=== PATIENT | female | born 1975 | race Caucasian/White ===

== ENCOUNTER 2017-10-03 01:01 | Observation (INO) | payer OTHER ==
[2017-10-03] VITALS (12 sets, daily range): BP systolic 107–158; BP diastolic 69–102
[~2017-10-03] VITALS: Ht 168.9 cm; Wt 120.7 kg
[~2017-10-03 01:01] MED LIST: ALBU8.5H IH; CETI-169 PO; CHLO10TA PO; CLON-308 PO; DIAZ-308 PO; DICL100G39; FLUT16SP19 NS; HYDR12.561 PO; LEVO25TA61 PO; LIDO5CRE18; MAGN500C11; MULT-1335 PO; SERT-181 PO
[2017-10-03 05:59] LABS: PLATELET COUNT, AUTOMATED 331 K/uL (150-450)
[2017-10-03] MEDS ORDERED: PHENAZOPYRIDINE 200 MG TAB PO ONE (06:30)
[2017-10-03] MEDS ORDERED: LIDOCAINE/SOD BICARB 8.4% SYR ID ONE (06:30)
[2017-10-03] MEDS ORDERED: cefOXitin/DEX(*) 2GM/50ML PREM 50 ML IVPB ONE (06:30)
[2017-10-03] MEDS ORDERED: MIDAZOLAM 2 MG/2 ML VIAL IVP PRN (06:30)
[2017-10-03] MEDS ORDERED: NORMOSOL R SOLN(*) 1000 ML BAG 1,000 ML IV PRN (06:30)
[2017-10-03] MEDS ORDERED: FAMOTIDINE 20 MG TAB PO ONE (06:30)
[2017-10-03] MEDS ORDERED: METOCLOPRAMIDE 10 MG/2 ML SDV ONE (06:53)
[2017-10-03] MEDS ORDERED: ROCURONIUM BROM 10 MG/ML 10 ML ONE (06:53)
[2017-10-03] MEDS ORDERED: LIDOCAINE MPF 1% 5 ML VIAL ONE (06:53)
[2017-10-03] MEDS ORDERED: DEXAMETHASONE SOD 4 MG/ML VIAL ONE (06:53)
[2017-10-03] MEDS ORDERED: PROPOFOL EMUL(*) 10MG/ML 20 ML 40 ML ONE (06:53)
[2017-10-03] MEDS ORDERED: ONDANSETRON 4 MG/2 ML VIAL ONE (06:53)
[2017-10-03] MEDS ORDERED: fentaNYL CITR 250 MCG/5 ML AMP ONE (06:56)
[2017-10-03] MEDS ORDERED: VASOPRESSIN 20 UNIT/ML VIAL ONE (06:59)
[2017-10-03] MEDS ORDERED: NS(*) 0.9% 100 ML BAG 100 ML ONE (06:59)
[2017-10-03] MEDS ORDERED: ROPIVACAINE 0.2% 20 ML VIAL ONE (06:59)
[2017-10-03] MEDS ORDERED: PROPOFOL(*)1000 MG/100 ML VIAL 0 ML ONE (07:05)
[2017-10-03] MEDS ORDERED: ACETAMINOPHEN(*)1000 MG/100 ML 100 ML IVPB ONE (07:05)
[2017-10-03] MEDS ORDERED: SUGAMMADEX SOD 500 MG/5 ML SDV ONE (09:35)
[2017-10-03] MEDS ORDERED: KETOROLAC 30 MG/ML VIAL ONE (09:36)
--- NOTE | 2017-10-03 10:00 | Post Operative Note ---
Operative Note - [facility] Operative Day Date: Oct 03, 2017 Time: 09:59 Physicians Surgeon: Saqib Slide Developer: Rocio Anesthesia: GETA Diagnosis Pre-Op Diagnosis: Dysmenorrhea Menorrhagia uterine fibroid Post-Op Diagnosis: same Endometriosis Left Hydrosalpinx Procedure Findings: endometriosi, left hydrosalpinx Procedure(s): LAVH BS MMC Cysto Specimen Removed:(Maybe N/A): uterus tubes Complications: none #[id number] Fluids Fluids: 1900 ml Estimated Blood Loss: <100 ml Dictated Date OP Note Dictated: Oct 03, 2017 Time OP Note Dictated: 10:00 Copies to: CHEMA TOVAR MD, TRAVIS MD Oct 03, 2017 10:00
[2017-10-03] MEDS ORDERED: clonazePAM 1 MG TAB PO PRN (10:05)
[2017-10-03] MEDS ORDERED: DIAZEPAM 5 MG TAB PO PRN (10:05)
[2017-10-03] MEDS ORDERED: ACETAMINOPHEN 325 MG TAB PO PRN (10:05)
[2017-10-03] MEDS ORDERED: SIMETHICONE 80 MG CHEW CHEW PRN (10:05)
[2017-10-03] MEDS ORDERED: ZOLPIDEM TARTRATE 10 MG TAB PO PRN (10:05)
[2017-10-03] MEDS ORDERED: fentaNYL CITR 100 MCG/2 ML AMP ONE ×2 (10:17→10:37)
[2017-10-03] MEDS ORDERED: BELLADONNA ALK/OPIUM 60MG SUPP PR ONE (10:50)
[2017-10-03] MEDS ORDERED: BELLADONNA ALK/OPIUM 60MG SUPP PR PRN (11:25)
[2017-10-03] MEDS: DLR(*) 1000 ML BAG 1,000 ML IV PRN ×2 (11:52→20:25)
[2017-10-03] MEDS ORDERED: HYDROmorphone PCA 6 MG/30 ML IV PRN (13:25)
[2017-10-03] MEDS ORDERED: NALOXONE HCL 0.4 MG/ML VIAL IVP PRN (13:35)
[2017-10-03] MEDS: ALBUTEROL SULFATE 90 MCG/ACT 8.5 GM HNH INH PRN (16:15)
[2017-10-03] MEDS: KETOROLAC 30 MG/ML VIAL IVP SCH ×2 (16:24→21:25)
--- NOTE | 2017-10-03 17:01 | OPERATIVE REPORT 1 ---
EVENT DATE: October 03, 2017 SURGEON: Rashaun Cerrato MD ANESTHESIOLOGIST: Raghu Moran MD ANESTHESIA: General endotracheal. NUTRITION REPRESENTATIVE: Raghu Chan MD PREOPERATIVE DIAGNOSES 1. Secondary dysmenorrhea. 2. Menorrhagia. 3. Submucous leiomyoma. POSTOPERATIVE DIAGNOSES 1. Secondary dysmenorrhea. 2. Menorrhagia. 3. Submucous leiomyoma. 4. Endometriosis. PROCEDURES PERFORMED 1. Laparoscopic-assisted vaginal hysterectomy. 2. Bilateral salpingectomy. 3. Modified Baldwin culdoplasty. 4. Diagnostic cystoscopy. ESTIMATED BLOOD LOSS Less than 100 mL. FLUIDS Crystalloid 1900 mL IV. URINE OUTPUT Not measured. FINDINGS Upon inspecting the pelvis, the uterus was enlarged with an apparent large uterine fibroid on the posterior uterine wall, slightly deviated towards the right side. The ovaries appeared normal. The left adnexa was slightly enveloped in filmy adhesions. The left fallopian tube appeared to be dilated consistent with a hydrosalpinx. Both ureters were observed peristalsing and excellent urine jets at the completion of the procedure as observed through the cystoscopy. PROCEDURE IN DETAIL The patient was brought to the operating room with a working IV and placed in the dorsal supine position. She was placed under general endotracheal anesthesia and moved to the dorsal lithotomy position. She was then prepped and draped in the usual sterile fashion. A weighted speculum was placed in the vagina. The cervix was grasped with a single-toothed tenaculum. It was carefully sounded to a depth of a 11 cm. A size 10 DEMIAN uterine manipulator was selected and assembled. The cervix was dilated to accommodate. It was passed through the cervix into the uterus. The bulb was inflated and secured, and all other instruments were then removed. A Smart catheter was placed. The legs were brought to the supine position, and gloves were changed. The umbilicus was infiltrated with 0.2% Naropin, and a 5 mm stab incision was made. A Veress needle was passed through this incision into the abdomen. While stabilizing the anterior abdominal wall, a pneumoperitoneum was created to an intra-abdominal pressure of 20 mmHg. This was reduced to 15 mmHg once all ports had been placed. The Veress needle was removed. A 5 mm bladeless trocar was passed through this incision into the abdomen under direct visualization with the scope. The patient was moved to the Trendelenburg position. Two additional 5 mm ports were placed in the right and left lower quadrants under direct visualization with the scope and under similar technique. The abdomen and pelvis were surveyed with the above findings noted. The left fallopian tube was put on medial stretch. It was excised carefully with the Gyrus device along its medial salpinx connection up to the utero-ovarian ligament. This was then cauterized with the round ligament and transected using the Gyrus device. The broad ligament was then into anterior and posterior leaflets. The anterior leaflet followed along the anterior uterus, creating the bladder reflection, and the posterior leaflet down to the uterosacral ligament, skeletonizing the uterine vasculature. This was then cauterized. The same procedure was followed on the contralateral side. On this side, there were more space-occupying issues with this large fibroid. This was overcome by medial retraction of the uterus. The same procedure excised the fallopian tube up to the utero-ovarian ligament. The utero-ovarian ligament was cauterized and transected. The round ligament was cauterized and transected. The broad ligament was into anterior and posterior leaflets. The bladder reflection was completed anteriorly, and the posterior peritoneum was dissected down to the uterosacral ligament, exposing the vasculature which was cauterized. Upon completion, the uterus was blanching. It was irrigated. There was no visible excessive bleeding at this point. The pneumoperitoneum was , therefore, released, and all instruments were secured to the patient's abdomen and covered. The legs were brought back to the lithotomy position, and we proceeded again with the vaginal portion of the procedure. A weighted speculum was placed in the vagina. The cervix was grasped with Donis clamps and put on stretch. The cervix was circumferentially injected with a diluted Pitressin solution, and a circumferential incision was made with the Bovie. The posterior cul-de-sac was entered sharply with Manuel scissors, and a long- billed weighted speculum was inserted here, exposing the uterosacral ligaments. These were bilaterally clamped, cut, and suture ligated with Vicryl suture type. Anterior dissection was performed by onion skinning the vaginal mucosa away from the cervix, dissecting up to the laparoscopic dissection. A right- angle retractor was inserted here into the anterior cul-de-sac, and the bladder was retracted away. This exposed the cardinal ligaments which were bilaterally clamped, cut, and suture ligated with Vicryl suture. The remaining vascular pedicle was isolated, then clamped and cut, excising the uterus. It was pulled out through the vagina and sent to Pathology. The remaining pedicles were sutured ligated with Vicryl suture and were hemostatic upon completion. The parietal peritoneum was closed with a 2-0 Vicryl in a running pursestring stitch. A modified Baldwin culdoplasty was performed by securing the uterosacral ligament to the ipsilateral vaginal mucosa and obliterating the posterior cul-de-sac peritoneum with external Baldwin stitches. Upon completion , there was only minor bleeding from the cuff. The vaginal cuff was repaired with 2-0 Vicryl in a running locking stitch. The uterosacral ligaments were tied in the midline. The Smart catheter was then removed. The external Baldwin sutures were tied. Diagnostic cystoscopy was performed. The bladder mucosa appeared to have Hunner lesions consistent with interstitial cystitis, but otherwise no visible injuries. The ureters bilaterally appeared to efflux urine jets with excellent stream, confirming patency and no visible injuries. The bladder was again drained. All instruments were removed from the vagina. The legs were brought back to the supine position, and the gloves were changed. We went back up top, reinsufflated the abdomen, and inspected laparoscopically. All pedicles were hemostatic. There was excellent support of the apex of the vagina, and no visible complications. The pelvis was irrigated with saline and suctioned dry. The pneumoperitoneum was released. All instruments were then removed. The skin incisions were repaired with 4-0 Monocryl simple subdermal and covered with Dermabond skin adhesive. She tolerated the procedure well. Sponge, lap, needle, and instrument counts were all correct times three. She was taken to recovery in stable condition. KAYDEN
--- NOTE | 2017-10-03 17:11 | OB/GYN Progress Note ---
OB Subjective Progress Notes Subjective Pain control issues initially but got behind in pain and anxiety was setting in. 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 Has been up to void multiple times. Nausea much better now. 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 Will wean to oral pills tomorrow. (2) Fibroid tumor (3) Dysmenorrhea CHEMA TOVAR MD Oct 03, 2017 17:11
[2017-10-03] MEDS: DOCUSATE CALCIUM 240 MG CAP PO SCH (21:24)
[2017-10-03] MEDS: FAMOTIDINE 20 MG TAB PO SCH (21:24)
[2017-10-03] MEDS: acetaZOLAMIDE 250 MG TAB PO SCH (21:25)
[2017-10-04 02:30] VITALS: BP 132/81
[2017-10-04] MEDS: KETOROLAC 30 MG/ML VIAL IVP SCH (04:00)
[2017-10-04] MEDS: DLR(*) 1000 ML BAG 1,000 ML IV PRN (05:10)
[2017-10-04 06:00] LABS: PLATELET COUNT, AUTOMATED 292 K/uL (150-450)
[2017-10-04 07:35] VITALS: BP 125/94
--- NOTE | 2017-10-04 07:43 | OB/GYN Progress Note ---
OB Subjective Progress Notes Subjective Some nausea yesterday and emesis with PO intake attempts. Better now and tolerating PO fluids. Ambulating to BR and voiding well. GI: POS Vomiting (yesterday), NEG Nausea (over last 12 hours) Pain: Mild OB Objective Physical Exam Vital Signs Date Time Temp Pulse Resp B/P (MAP) Pulse Ox O2 Delivery O2 Flow Rate FiO2 10/04/17 05:15 76 16 93 Nasal Cannula 2.0 10/04/17 02:30 98.7 132/81 (98) General Appearance: Alert/Awake/No Acute Distress Neurological: No Gross deficits Cardiovascular: Normal Rhythm & Peripheral Pulses, Regular Rate and Rhythm Respiratory: No Respiratory Distress, Clear to Auscultation Abdomen: Soft, Non-Tender, Non-Distended, Bowel Sounds Present (hypoactive) Incision: Other (pt has abdominal binder on) Integumentary: Skin Intact without Lesions or Rash Psychological: Alert & Oriented X3, Appropriate Mood & Affect Result Diagram: 10/04/17 0541 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 If continues well, may go home tonight. (2) Fibroid tumor (3) Dysmenorrhea CHEMA TOVAR MD Oct 04, 2017 07:43
[2017-10-04] MEDS: ALBUTEROL SULFATE 90 MCG/ACT 8.5 GM HNH INH PRN ×2 (08:35→12:52)
[2017-10-04 08:48] VITALS: Ht 168.9 cm; Wt 120.7 kg
[2017-10-04] MEDS ORDERED: busPIRone HCL 5 MG TAB PO SCH (09:00)
[2017-10-04] MEDS ORDERED: MULTIVITAMINS TAB PO SCH (09:00)
[2017-10-04] MEDS ORDERED: MAGNESIUM CITRATE 300 ML BTL PO ONE (09:00)
[2017-10-04] MEDS ORDERED: INFLUENZA VIRUS VAC 0.5 ML SYR IM ONLY ONE (09:00)
[2017-10-04] MEDS: acetaZOLAMIDE 250 MG TAB PO SCH (09:16)
[2017-10-04] MEDS: FAMOTIDINE 20 MG TAB PO SCH (09:18)
[2017-10-04] MEDS: DOCUSATE CALCIUM 240 MG CAP PO SCH (09:18)
[2017-10-04] MEDS ORDERED: IBUPROFEN 800 MG TAB PO PRN (10:00)
[2017-10-04] MEDS ORDERED: MAGNESIUM HYDROXIDE* 30ML UDCP PO PRN (10:20)
== END 2017-10-04 16:00 | disposition home or self-care (01) ==
LOC: OR 01:01 → PED 11:15
PROVIDERS: ADMIT Obstetrics & Gynecology; ATTEND Obstetrics & Gynecology
DX: N94.5 Secondary dysmenorrhea (principal); N92.0 Excessive and frequent menstruation with regular cycle; D25.0 Submucous leiomyoma of uterus; N80.9 Endometriosis, unspecified
CPT/HCPCS: 36415; 58552; 84703; 85014; 85018; 85025; 88307; 94640; G0378; J0131; J0694; J1100; J1170; J1885; J2001; J2250; J2704; J2765; J2795; J3010; J3490; J7050; Q0161; J2405

== ENCOUNTER 2018-12-02 22:46 | Emergency (ER) | payer OTHER ==
[2017-10-04 08:48] VITALS: Wt 108.0 kg
[~2018-12-02 22:46] MED LIST changes: -CLON-308 PO; +CLON-335 PO
--- NOTE | 2018-12-02 22:55 | ER Report ---
History and Physical Time Seen By MD: 22:54 HPI/ROS CHIEF COMPLAINT: Migraine headache HISTORY OF PRESENT ILLNESS: 43-year-old female presents with a migraine headache for 48 hours. Patient describes classic headache. She used her to sumatriptan autoinjectors without improvement of her headache. She's been vomiting tonight which prompted her to come in for evaluation. Patient notes no fever, chills or rhinitis. She states she got over an upper respiratory infection one week ago. Patient notes photophobia, nausea and vomiting. She notes no stiff neck. She denies any numbness, tingling or weakness in any of her extremities except for some numbness in her hands which occurs with all of her migraines.. REVIEW OF SYSTEMS: Respiratory: No cough, no dyspnea. Cardiovascular: No chest pain, no palpitations. Gastrointestinal: As above Musculoskeletal: No back pain. Allergies: Coded Allergies: sumatriptan (Verified Allergy, Severe, 08/16/17) Penicillins (Verified Allergy, Unknown, 08/16/17) pseudoephedrine (Verified Adverse Reaction, Severe, 08/16/17) promethazine (Verified Adverse Reaction, Intermediate, MOOD CHANGES, 09/26/17) ondansetron (Verified Adverse Reaction, Unknown, 08/16/17) Home Meds Active Scripts Hydroxyzine Pamoate (VISTARIL) 25 Mg Capsule, 25 MG PO Q6HR PRN for NAUSEA/VOMITING, #30 CAPSULE Prov:NOHEMI HOPE DO 12/03/18 Reported Medications Quetiapine Fumarate (Quetiapine Fumarate ER) 300 Mg Tab.er.24h, 1 TAB PO QDAY 12/02/18 Sumatriptan Succinate (SUMATRIPTAN SUCCINATE) 4 Mg/0.5 Ml Pen.injctr, 4 MG SQ PRN PRN for MIGRAINE 12/02/18 Diazepam (DIAZEPAM) 5 Mg Tablet, 5 MG PO QHS PRN for ANXIETY, #5 TAB 09/26/17 Multivitamin With Minerals (MULTIPLE VITAMIN) 1 Each Tablet, 1 EACH PO DAILY, TAB 09/26/17 Albuterol Sulfate 90 Mcg/Act (PROAIR HFA 90 MCG/ACT) 8.5 Gm Hfa.aer.ad, 1-2 PUFF IH 3-4XD, INHALER 08/16/17 Fluticasone Prop 50 Mcg Ns (FLONASE 50 MCG NS) 16 Gm [place].susp, 1 SPRAY NS BID, BOT 08/16/17 Chlorpromazine Hcl (CHLORPROMAZINE HCL) 10 Mg Tablet, 10 MG PO 08/16/17 Lidocaine (Lidocaine) 5 Gm Cream..g. 08/16/17 Diclofenac Sodium 1% Gel (VOLTAREN 1% GEL) 100 Gm Gel..gram. 08/16/17 Cetirizine Hcl (CETIRIZINE HCL) 10 Mg Tablet, 10 MG PO QDAY, TAB 08/16/17 Magnesium Oxide (Magnesium Oxide) 500 Mg Capsule, 800 QDAY 08/16/17 Clonazepam (CLONAZEPAM) 2 Mg Tablet, 1 MG PO QDAY, #6 TAB 08/16/17 Discontinued Reported Medications Sertraline Hcl (SERTRALINE HCL) 100 Mg Tablet, 1 TAB PO QDAY, TAB 08/16/17 Levothyroxine Sodium (LEVOTHYROXINE SODIUM) 25 Mcg Tablet, 25 MCG PO QDAY 08/16/17 Hydrochlorothiazide (HYDROCHLOROTHIAZIDE) 12.5 Mg Tablet, 1 TAB PO QDAY, TAB 08/16/17 Reviewed Nurses Notes: Yes Old Medical Records Reviewed: Yes Hx Smoking: No Smoking Status: Never Smoker Exposure to Second Hand Smoke?: No Hx Substance Use Disorder: No Hx Alcohol Use: Yes (1-2 drinks per week) Constitutional Vital Sign - Last 24 Hours 12/02/18 12/02/18 12/02/18 12/02/18 22:46 22:52 22:54 23:00 Temp 98.1 Pulse ??? 96 Resp 20 B/P (MAP) 141/111 (121) 141/111 125/106 (112) Pulse Ox 97 O2 Delivery Room Air 12/02/18 12/02/18 12/02/18 12/02/18 23:16 23:30 23:46 23:51 Pulse 91 90 95 B/P (MAP) 126/100 (109) Pulse Ox 94 94 94 12/03/18 12/03/18 12/03/18 00:06 00:21 00:36 Pulse 89 89 91 Pulse Ox 93 92 94 Intake and Output 12/02/18 12/02/18 12/03/18 15:00 23:00 07:00 Intake Total 200 ml Balance 200 ml Physical Exam General Appearance: The patient is alert, has no immediate need for airway protection and no current signs of toxicity. Moderate distress, wearing sunglasses HEENT: Pupils equal and round no injection. + Photophobia, TMs normal, orop harynx without redness or exudate Respiratory: Chest is non tender, lungs are clear to auscultation. Cardiac: regular rate and rhythm Gastrointestinal: Abdomen is soft and non tender, no masses, bowel sounds normal. Musculoskeletal: Neck: Neck is supple and non tender. No lymphadenopathy, no meningismus Extremities have full range of motion and are non tender. Skin: No rashes or lesions. Neuro: Alert and oriented 3, cranial nerves II through XII intact motor 5/5 crosscutter, sensory intact to light touch 4 DIFFERENTIAL DIAGNOSIS: After history and physical exam differential diagnosis was considered for headache including but not limited to subarachnoid hemorrhage, migraine headache, tension headache and infectious causes such as meningitis, pharyngitis and sinusitis. Medical Decision Making ED Course/Re-evaluation Clinical Indication for ER IV: Hydration, IV Access ED Course Patient was minute to an examination room. H&P was done. The differential diagnoses was considered. On clinical examination. Patient has a nonfocal neurologic examination. Patient be treated with a nonnarcotic cocktail of IV medications. She has numerous allergies, which comp acute treatment. She was given normal saline 1 L, Benadryl 25 mg, Toradol 30 mg, Decadron 5 mg, Reglan 10 mg. Patient's IV infiltrated before she got all the fluids. Patient reports feeling better in terms of nausea. She was given 1 Percocet by mouth for pain relief. She is discharged home with prescription of hydroxyzine for nausea control. She is advised to follow-up with her primary care if her headache recurs. Decision to Disposition Date: Dec 02, 2018 Decision to Disposition Time: 23:44 Depart Departure Latest Vital Signs Vital Signs Date Time Temp Pulse Resp B/P (MAP) Pulse Ox O2 Delivery O2 Flow Rate FiO2 12/03/18 00:36 91 94 12/02/18 23:30 126/100 (109) 12/02/18 22:54 98.1 20 Room Air Impression: Primary Impression: Migraine headache Condition: Improved Disposition: HOME OR SELF-CARE New Scripts Hydroxyzine Pamoate (VISTARIL) 25 Mg Capsule 25 MG PO Q6HR PRN for NAUSEA/VOMITING, #30 CAPSULE Prov: NOHEMI HOPE DO 12/03/18 Patient Instructions: Migraine Headache (ED) Additional Instructions: Follow-up with your primary care doctor as needed Problem Qualifiers Primary Impression: Migraine headache Migraine type: unspecified Status migrainosus presence: without status migrainosus Intractability: not intractable Qualified Codes: G43.909 - Migraine, unspecified, not intractable, without status migrainosus NOHEMI HOPE DO Dec 02, 2018 22:55
[2018-12-02] MEDS ORDERED: SUMA4PEN SQ (23:01)
[2018-12-02] MEDS ORDERED: QUET300T70 PO (23:03)
[2018-12-02] MEDS ORDERED: diphenhydrAMINE 50 MG/ML VIAL IVP ONE (23:20)
[2018-12-02] MEDS ORDERED: METOCLOPRAMIDE 10 MG/2 ML SDV IVP ONE (23:20)
[2018-12-02] MEDS ORDERED: DEXAMETHASONE SOD PHOS 10MG/ML IVP ONE (23:20)
[2018-12-02] MEDS ORDERED: KETOROLAC 30 MG/ML VIAL IVP ONE (23:20)
[2018-12-02] MEDS ORDERED: NS(*) 0.9% 1000 ML BAG 1,000 ML IV ONE (23:20)
[2018-12-02 23:30] VITALS: BP 126/100
[2018-12-03] MEDS ORDERED: HYDR25CA83 PO (00:46)
== END 2018-12-03 00:57 | disposition home or self-care (01) ==
LOC: ER 22:59
DX: G43.909 Migraine, unspecified, not intractable, without status migrainosus (principal)
CPT/HCPCS: 96374; 96375; 99284; J1100; J1200; J1885; J2765; J7030

== ENCOUNTER 2019-03-05 01:54 | Observation (INO) | payer OTHER ==
[2019-03-05] VITALS (12 sets, daily range): BP systolic 115–151; BP diastolic 54–104
[~2019-03-05] VITALS: Ht 167.6 cm; Wt 127.5 kg
[~2019-03-05 01:54] MED LIST changes: +HYDR25CA83 PO; -LIDO5CRE18; +LIDO5CRE18 TOP; +MELA3TAB31 PO; +QUET100T PO; +QUET300T70 PO; +SUMA4PEN SQ
[2019-03-05] MEDS ORDERED: LIDOCAINE/SOD BICARB 8.4% SYR ID ONE (07:35)
[2019-03-05] MEDS ORDERED: NORMOSOL R SOLN(*) 1000 ML BAG 1,000 ML IV PRN (07:35)
[2019-03-05] MEDS ORDERED: MIDAZOLAM 2 MG/2 ML VIAL IVP PRN (07:35)
[2019-03-05] MEDS ORDERED: FAMOTIDINE 20 MG TAB PO ONE (07:35)
[2019-03-05 07:45] LABS: PLATELET COUNT, AUTOMATED 296 K/uL (150-450)
[2019-03-05] MEDS ORDERED: fentaNYL CITR 100 MCG/2 ML AMP ONE ×3 (08:24→11:32)
[2019-03-05] MEDS ORDERED: PROPOFOL EMUL(*) 10MG/ML 20 ML 20 ML ONE (08:24)
[2019-03-05] MEDS ORDERED: DEXAMETHASONE SOD PHOS 10MG/ML ONE (08:24)
[2019-03-05] MEDS ORDERED: LIDOCAINE MPF 1% 5 ML VIAL ONE (08:24)
[2019-03-05] MEDS ORDERED: ONDANSETRON 4 MG/2 ML VIAL ONE (08:24)
[2019-03-05] MEDS ORDERED: VASOPRESSIN 20 UNIT/ML VIAL ONE (08:28)
[2019-03-05] MEDS ORDERED: ESTROGENS CONJ VAG CREAM 30 GM TUBE PV ONE (08:28)
[2019-03-05] MEDS ORDERED: ROPIVACAINE 0.2% 20 ML VIAL ONE (08:28)
[2019-03-05] MEDS ORDERED: NS(*) 0.9% 100 ML BAG 100 ML ONE (08:28)
[2019-03-05] MEDS ORDERED: ROCURONIUM BR 10 MG/ML 5 ML SY 5 ML ONE ×2 (08:40→10:47)
[2019-03-05] MEDS ORDERED: MANNITOL* (20%)100 GM/500ML BG 500 ML IVPB ONE (08:48)
[2019-03-05] MEDS ORDERED: NS(*) 0.9% 250 ML BAG 0 ML ONE (08:49)
[2019-03-05] MEDS ORDERED: SUGAMMADEX SOD 500 MG/5 ML SDV ONE (10:52)
--- NOTE | 2019-03-05 11:24 | Post Operative Note ---
Operative Note - [facility] Operative Day Date: Mar 05, 2019 Time: 11:22 Physicians Surgeon: Saqib Anesthesia: SHANTELLE Diagnosis Pre-Op Diagnosis: cystocele Recotocele urethral hypermobility mixed urinary incontinence Post-Op Diagnosis: same Procedure Procedure(s): anterior colporrhaphy posterior colporrhaphy TO midurethropexy Complications: [id number] Fluids Fluids: 1200 ml Estimated Blood Loss: minimal Dictated Date OP Note Dictated: Mar 05, 2019 Time OP Note Dictated: 11:23 Copies to: CHEMA TOVAR MD ; CHEMA TOVAR MD Mar 05, 2019 11:24
[2019-03-05] MEDS ORDERED: SIMETHICONE 80 MG CHEW CHEW PRN (11:25)
[2019-03-05] MEDS ORDERED: INFLUENZA VIRUS VAC 0.5ML SYR IM ONE (11:25)
[2019-03-05] MEDS ORDERED: ZOLPIDEM TARTRATE 10 MG TAB PO PRN (11:25)
[2019-03-05] MEDS ORDERED: ACETAMINOPHEN 325 MG TAB PO PRN (11:25)
[2019-03-05] MEDS ORDERED: KETOROLAC 30 MG/ML VIAL IVP SCH (12:00)
--- NOTE | 2019-03-05 12:45 | OPERATIVE REPORT 1 ---
EVENT DATE: March 05, 2019 SURGEON: Rashaun Cerrato MD ANESTHESIOLOGIST: Fernando Cuevas MD ANESTHESIA: General LMA. PREOPERATIVE DIAGNOSES 1. 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 2. Urinary incontinence, mixed. 3. Rectocele. 4. Cystocele, midline. POSTOPERATIVE DIAGNOSES 1. 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 2. Urinary incontinence, mixed. 3. Rectocele. 4. Cystocele, midline. PROCEDURES PERFORMED 1. Anterior colporrhaphy. 2. Posterior colporrhaphy. 3. Transobturator mid urethropexy. 4. Diagnostic cystoscopy. ESTIMATED BLOOD LOSS Minimal. FLUIDS 1200 cc IV crystalloid. DESCRIPTION OF PROCEDURE The patient was brought to the operating room with a working IV placed in the dorsal supine position. She was placed under general LMA anesthesia by Dr. Cuevas and moved to the dorsal lithotomy position. She was then prepped and draped in the usual sterile fashion. A weighted speculum was placed in the vagina and the anterior defect was inspected. It was a midline defect. Therefore, the vaginal cuff was grasped between two Allis clamps and put on lateral stretch. The defect was demarcated with a marker and the mid urethral region was identified. An inverted T-shape incision was made along the defect and up to transversely across the vaginal cuff. The vagina mucosa was then dissected away underlying endopelvic fascia. This was performed on both sides and using blunt and sharp dissection the defect was dissected out. It was reduced first by pursestring stitch followed by Jayda plication stitches along its entire length up to the mid urethra. Excess vaginal mucosa was then trimmed away and the vaginal incision was repaired with a 2-0 Vicryl in a running locking stitch. Attention was then turned to the posterior repair in likewise fashion, inspecting and demarcating the defect, which was midline. A kennedy-shaped perineorrhaphy incision was made, dissecting out that kennedy-shaped portion of the vaginal introitus and perineal skin. The defect was otherwise received in incision in the midline along its length up to the vaginal cuff. It was dissected laterally with sharp and blunt dissection in order to isolate the defect and then a pursestring stitch was performed to reduce the size followed by Jayda plication stitches along its entire length. The defect was nicely reduced after that had been performed. Excess vaginal mucosa was trimmed away and the repair was performed with a 2-0 Vicryl in a running locking stitch and the perineum was repaired as typical for a second degree obstetrical tear. A few site specific bleeders were suture ligated with [id number] stitch of 2-0 Vicryl and then excellent hemostasis was achieved. Attention was then turned to the sling. The mid urethra received a linear transverse incision after infiltrating with local anesthetic. Dissection towards the transobturator space was performed with tenotomy scissors angled at a 45-degree angle and bluntly dissecting towards the transobturator space, which was palpable extracorporeally. A puncture incision was made overlying the transobturator fossa on both sides. The dissection was performed on both sides and then bluntly continued until the posterior ovarian fossa membrane was palpable. The hook was placed through the right transobturator fossa through the membrane, rotating the hook to a 45-degree angle and continuing through the dissection into the vaginal space. The sling was attached and drawn back through, leaving the blue introducers intracorporal. The same procedure was followed on the contralateral side in likewise fashion, placing the string through the transobturator membrane and then rotating to a 45-degree angle and continuing into the vaginal dissection. The sling was attached and drawn back through, leaving the blue introducers intracorporal. Diagnostic cystoscopy was then performed, removing the Smart catheter and inspecting the entire bladder. There were no visible bladder injuries notable. Both ureters were observed to have strong urine jets. Therefore, cystoscopy was completed and the scope was removed. Smart catheter was replaced and the sling was tensioned by grasping the mid portion of the sling with a [place] clamp, approximately 1 cm worth of folded sling material, and then approximating the Annabel against the urethra. The slack was taken out of the remaining sling. The sleeves were removed, securing the sling in place and the Annabel was removed. Minor adjustments were then made in order to ensure a curved Manuel scissor could easily pass beneath the sling but was still on enough tension to occlude the urethra with a Valsalva. Excess sling material was trimmed at the perineum. The incision was repaired with a 2-0 Vicryl in a running locking stitch. The vagina remained hemostatic throughout the sling procedure. Therefore, the vagina was packed with a Kerlix sponge moistened with Premarin cream. Smart catheter was left indwelling. She was then awakened from general anesthesia in stable condition and taken to recovery. Sponge, lap, needle and instrument counts were all correct x3. MTDD
[2019-03-05] MEDS: DLR(*) 1000 ML BAG 1,000 ML IV PRN ×2 (13:00→18:35)
[2019-03-05] MEDS: BELLADONNA ALK/OPIUM 60MG SUPP PR PRN (13:19)
[2019-03-05] MEDS: oxyCODON/ACET (*)5/325MG (CII) 1 TAB TAB PO PRN ×2 (13:51→22:37)
[2019-03-05] MEDS: DOCUSATE CALCIUM 240 MG CAP PO SCH (20:33)
[2019-03-05] MEDS: FAMOTIDINE 20 MG TAB PO SCH (20:33)
[2019-03-05] MEDS: KETOROLAC 30 MG/ML VIAL IVP SCH (20:40)
[2019-03-06 00:12] VITALS: BP 100/54
[2019-03-06] MEDS: KETOROLAC 30 MG/ML VIAL IVP SCH (02:45)
[2019-03-06] MEDS ORDERED: IBUPROFEN 800 MG TAB PO PRN (06:00)
[2019-03-06 06:50] LABS: PLATELET COUNT, AUTOMATED 281 K/uL (150-450)
[2019-03-06 07:25] VITALS: BP 112/64
--- NOTE | 2019-03-06 07:36 | OB/GYN Progress Note ---
OB Subjective Progress Notes Subjective Had some bleeding yesterday more than usual and resolved with compression with gauze GI: NEG Nausea : Voiding Well Pain: Mild OB Objective Physical Exam Vital Signs Date Time Temp Pulse Resp B/P (MAP) Pulse Ox O2 Delivery O2 Flow Rate FiO2 03/06/19 00:31 92 Nasal Cannula 1.0 03/06/19 00:12 99.1 93 100/54 (69) 03/05/19 19:30 14 Intake and Output 03/06/19 07:01 Intake Total 4310 ml Output Total 1275 ml Balance 3035 ml Intake Oral 50 ml IV Total 2810 ml Other 1450 ml Output Urine Total 1275 ml General Appearance: Alert/Awake/No Acute Distress Neurological: No Gross deficits Cardiovascular: Normal Rhythm & Peripheral Pulses Respiratory: No Respiratory Distress Abdomen: Soft, Non-Tender, Non-Distended Integumentary: Skin Intact without Lesions or Rash Psychological: Alert & Oriented X3, Appropriate Mood & Affect Result Diagram: 03/06/19 0529 03/05/19 0738 Assessment and Plan 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 Old blood on gauze. Recommend up to ambulate today and will check bladder function and post void residual. Home with leg bag and palomares indwelling if PVR >200. F/U with me in 2 weeks. CHEMA TOVAR MD Mar 06, 2019 07:35
[2019-03-06] MEDS ORDERED: OXYC-865 PO (07:37)
--- NOTE | 2019-03-06 07:39 | Short(Outpt) Discharge Summary ---
Discharge Summary Reason for Hosp/Final Diag: (1) Other specified aftercare following surgery Hospital Course & Plan: s/p A&P repair Palomares and packing removed. Old blood on gauze. Recommend up to ambulate today and will check bladder function and post void residual. Home with leg bag and palomares indwelling if PVR >200. F/U with me in 2 weeks. Departure Discharge to: Home, Self Care Discharge Instructions Home Meds Active Scripts Oxycodone Hcl/Acetaminophen (PERCOCET 5-325 MG TABLET) 1 Each Tablet, 1 EACH PO Q4-6H PRN for PAIN, #10 TAB 0 Refills Prov:CHEMA TOVAR MD 03/06/19 Hydroxyzine Pamoate (VISTARIL) 25 Mg Capsule, 25 MG PO Q6HR PRN for NAUSEA/VOMITING, #30 CAPSULE Prov:NOHEMI HOPE DO 12/03/18 Reported Medications Quetiapine Fumarate (QUETIAPINE FUMARATE) 100 Mg Tablet, 200 MG PO BID PRN for PRN 02/26/19 Melatonin (MELATONIN) 3 Mg Tablet, 12 MG PO QHS 02/26/19 Quetiapine Fumarate (Quetiapine Fumarate ER) 300 Mg Tab.er.24h, 1 TAB PO QDAY 12/02/18 Sumatriptan Succinate (SUMATRIPTAN SUCCINATE) 4 Mg/0.5 Ml Pen.injctr, 4 MG SQ PRN PRN for MIGRAINE 12/02/18 Diazepam (DIAZEPAM) 5 Mg Tablet, 5 MG PO QHS PRN for ANXIETY, #5 TAB 09/26/17 Multivitamin With Minerals (MULTIPLE VITAMIN) 1 Each Tablet, 1 EACH PO DAILY, TAB 09/26/17 Albuterol Sulfate 90 Mcg/Act (PROAIR HFA 90 MCG/ACT) 8.5 Gm Hfa.aer.ad, 1-2 PUFF IH 3-4XD, INHALER 08/16/17 Fluticasone Prop 50 Mcg Ns (FLONASE 50 MCG NS) 16 Gm [place].susp, 1 SPRAY NS BID, BOT 08/16/17 Chlorpromazine Hcl (CHLORPROMAZINE HCL) 10 Mg Tablet, 10 MG PO PRN 08/16/17 Lidocaine (Lidocaine) 5 Gm Cream..g., TOP PRN 08/16/17 Diclofenac Sodium 1% Gel (VOLTAREN 1% GEL) 100 Gm Gel..gram., PRN 08/16/17 Cetirizine Hcl (CETIRIZINE HCL) 10 Mg Tablet, 10 MG PO PRN, TAB 08/16/17 Magnesium Oxide (Magnesium Oxide) 500 Mg Capsule, 800 QDAY 08/16/17 Clonazepam (CLONAZEPAM) 2 Mg Tablet, 1 MG PO PRN, #6 TAB 08/16/17 Follow up 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
[2019-03-06 08:29] VITALS: Ht 167.6 cm; Wt 127.5 kg
[2019-03-06] MEDS: DOCUSATE CALCIUM 240 MG CAP PO SCH (10:37)
[2019-03-06] MEDS: BELLADONNA ALK/OPIUM 60MG SUPP PR PRN (10:37)
[2019-03-06] MEDS: FAMOTIDINE 20 MG TAB PO SCH (10:37)
[2019-03-06 10:45] VITALS: BP 115/72
[2019-03-06] MEDS: oxyCODON/ACET (*)5/325MG (CII) 1 TAB TAB PO PRN (13:54)
[2019-03-06] MEDS ORDERED: MELATONIN 3 MG TAB PO SCH (21:00)
[2019-03-06] MEDS ORDERED: QUEtiapine FUM 100 MG TAB PO SCH (21:00)
== END 2019-03-06 07:37 | disposition home or self-care (01) ==
LOC: OR 01:54 → PED 12:30
PROVIDERS: ADMIT Obstetrics & Gynecology; ATTEND Obstetrics & Gynecology
DX: N36.43 Combined hypermobility of urethra and intrinsic sphincter deficiency (principal); N81.6 Rectocele; N39.46 Mixed incontinence; N81.11 Cystocele, midline; E03.9 Hypothyroidism, unspecified
CPT/HCPCS: 36415; 57260; 84443; 85025; 96372; C1771; G0378; J1100; J1885; J2001; J2250; J2704; J2795; J3010; J3490; J7050; 82040; 82247; 82310; 82374; 82435; 82565; 82947; 84075; 84132; 84155; 84295; 84450; 84460; 84520; J2405